=== PATIENT | female | born 1965 | race Two or more races ===

== ENCOUNTER 2018-11-13 09:00 | Inpatient (IN) | payer OTHER ==
[~2018-11-13] VITALS: Ht 162.6 cm; Wt 70.3 kg
[2018-11-22] MEDS ORDERED: TRAM1TAB98 PO (07:43)
[2018-11-22] MEDS ORDERED: LEVSIN/SL0.125 MG SL (07:43)
== END 2018-11-22 11:35 | disposition home or self-care (01) | DRG 743 ==
LOC: SURH 11-20 07:00 → O/R 11-20 08:28 → EDSTATUS 11-20 09:00 → SURH 11-20 09:00 → CIR.AMB 11-20 09:00 → OB/GYN 11-20 14:52
PROVIDERS: ADMIT Obstetrics & Gynecology Gynecology
PROC: 0UT70ZZ Resection of Bilateral Fallopian Tubes, Open Approach (ICD-10-PCS; 2018-11-20)
PROC: 0UT90ZZ Resection of Uterus, Open Approach (ICD-10-PCS; principal; 2018-11-20 07:15)
DX: D25.1 Intramural leiomyoma of uterus (principal); N80.0 Endometriosis of uterus